=== PATIENT | male | born 2000 | race Hispanic/Latino ===

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

== ENCOUNTER 2019-10-16 18:23 | Emergency (ER) | payer BC, OTHER, SELFPAY ==
--- OUTSIDE RECORDS SUMMARY | 2019-10-16 18:25 | XMS REPORT ---
:[address] [facility] t Address [address] [place] [address] Dr. Frey [address] [place] [id number] Care Team Providers Name Role Phone Unavailable Unavailable Unavailable Problems This patient has no known problems. Allergies, Adverse Reactions, Alerts This patient has no known allergies or adverse reactions. Medications This patient has no known medications.
[2019-10-16] MEDS ORDERED: DIPHENHYDRAMINE 25 MG TAB/CAP ONE (19:07)
[2019-10-16] MEDS ORDERED: dexAMETHasone 4 MG TAB ONE (19:08)
--- NOTE | 2019-10-16 19:33 | ER ---
Nurse's Notes [facility] Name: Ashok Noble Age: 18 yrs Sex: Male : 2000 Arrival Date: 10/16/2019 Time: 18:27 Bed 18 Private MD: Diagnosis: Edema of bilateral orbit Presentation: 10/15 18:37 Chief complaint: Patient states: States he staring eating chicken that his girlfriend ll1 made him. He noticed it was raw, then started N/V. Then noticed eye area is swollen so he thought he might be having a allergic reaction. Coronavirus screen: Proceed with normal triage. Patient denies a cough. Patient denies shortness of breath or difficulty breathing. Patient denies measured and/or subjective temperature greater than 100.4F prior to today's visit. Patient denies travel on a cruise ship or to a country the [facility] currently lists as an affected area. Patient denies contact with known and/or suspected case of COVID-19. Ebola Screen: Patient denies travel to an Ebola-affected area in the 21 days before illness onset. Onset: The symptoms/episode began/occurred today. Anaphylaxis evaluation, eye area swelling. Initial Sepsis Screen: Does the patient meet any 2 criteria? No. Patient's initial sepsis screen is negative. Does the patient have a suspected source of infection? No. Patient's initial sepsis screen is negative. Risk Assessment: Do you want to hurt yourself or someone else? Patient reports no desire to harm self or others. Onset of symptoms was October 16, 2019. 18:37 Method Of Arrival: Ambulatory ll1 18:37 Acuity: MOISES 3 ll1 Historical: - Allergies: 18:41 No Known Allergies; ll1 - PMHx: 18:41 None; ll1 - PSHx: 18:41 None; ll1 - Social history:: Smoking status: Patient denies any tobacco usage or history of. Patient/guardian denies using alcohol, street drugs, tobacco products. Screenin:31 Abuse screen: Denies threats or abuse. Nutritional screening: No deficits noted. Tuberculosis screening: No symptoms or risk factors identified. Fall Risk None identified. Assessment: 18:50 General: Appears in no apparent distress. Behavior is calm, cooperative. Pain: Denies pain. Neuro: Level of Consciousness is awake, alert, Oriented to person, place, time, situation. Cardiovascular: Heart tones S1 S2 present. Respiratory: Airway is patent Respiratory effort is even, unlabored, Respiratory pattern is regular, symmetrical, Breath sounds are clear bilaterally. GI: No signs and/or symptoms were reported involving the gastrointestinal system. : No signs and/or symptoms were reported regarding the genitourinary system. EENT: Eyes swelling around eyes. Derm: No signs and/or symptoms reported regarding the dermatologic system. Musculoskeletal: No signs and/or symptoms reported regarding the musculoskeletal system. 19:47 Reassessment: discharge instructions given to Pt. No needs voiced. Pt voiced ah understanding. Vital Signs: 18:37 BP 126 / 89; Pulse 89; Resp 18; Temp 98.0; Pulse Ox 97% ; Pain 0/10; ll1 ED Course: 18:27 Patient arrived in ED. mr 18:33 Phil Carter PA is PHCP. jr8 18:33 Dg Perez MD is Attending Physician. [facility] 18:40 Triage completed. [facility] 18:41 Arm band placed on Patient placed in an exam room, on a stretcher. [facility] 18:58 Shelbi Urias, RN is Primary Nurse. 19:32 Patient has correct armband on for positive identification. Bed in low position. Call light in reach. 19:44 No provider procedures requiring assistance completed. Patient did not have IV access during this emergency room visit. Administered Medications: 19:05 Drug: Decadron 10 mg Route: PO; 19:43 Follow up: Response: No adverse reaction 19:06 Drug: Benadryl 25 mg Route: PO; 19:44 Follow up: Response: No adverse reaction Outcome: 19:32 Discharge ordered by . [facility] 19:46 Discharged to home ambulatory. 19:46 Condition: good 19:46 Discharge instructions given to patient, Instructed on discharge instructions, follow up and referral plans. Demonstrated understanding of instructions, follow-up care. 19:47 Patient left the ED. Signatures: Walter Noemi mr AkshataleksandarPhil PA PA 8 Shelbi Urias RN RN Mary Anne Perales RN RN [facility]
--- NOTE | 2019-10-16 19:34 | EDPHYS ---
Physician Documentation [facility] Name: Ashok Noble Age: 18 yrs Sex: Male : 2000 Arrival Date: 10/16/2019 Time: 18:27 Bed 18 Private MD: ED Physician Dg Perez HPI: 10/15 19:14 This 18 yrs old Male presents to ER via Ambulatory with complaints of Allergic jr8 Reaction. 19:14 The patient presents with localized swelling. Onset: The symptoms/episode jr8 began/occurred acutely, today. Associated signs and symptoms: The patient has no apparent associated signs or symptoms. Possible causes: The patient has no known obvious cause for the symptoms. Severity of symptoms: At their worst the symptoms were mild in the emergency department the symptoms are unchanged. The patient has not experienced similar symptoms in the past. The patient has not recently seen a physician. Patient stated that he was eating chicken and ate a piece that was undercooked. Stated that he went to vomit. Post vomiting had eye redness and swelling. Denies any other symptoms at this time . Historical: - Allergies: 18:41 No Known Allergies; ll1 - PMHx: 18:41 None; ll1 - PSHx: 18:41 None; ll1 - Social history:: Smoking status: Patient denies any tobacco usage or history of. Patient/guardian denies using alcohol, street drugs, tobacco products. ROS: 19:14 ENT: Negative for injury, pain, and discharge, Neck: Negative for injury, pain, and jr8 swelling, Cardiovascular: Negative for chest pain, palpitations, and edema, Respiratory: Negative for shortness of breath, cough, wheezing, and pleuritic chest pain, Abdomen/GI: Negative for abdominal pain, nausea, vomiting, diarrhea, and constipation, Back: Negative for injury and pain, MS/Extremity: Negative for injury and deformity, Skin: Negative for injury, rash, and discoloration, Neuro: Negative for headache, weakness, numbness, tingling, and seizure. 19:14 Eyes: Positive for redness, swelling. Exam: 19:14 Head/Face: Normocephalic, atraumatic. ENT: Nares patent. No nasal discharge, no jr8 septal abnormalities noted. Tympanic membranes are normal and external auditory canals are clear. Oropharynx with no redness, swelling, or masses, exudates, or evidence of obstruction, uvula midline. Mucous membranes moist. Neck: Trachea midline, no thyromegaly or masses palpated, and no cervical lymphadenopathy. Supple, full range of motion without nuchal rigidity, or vertebral point tenderness. No Meningismus. Cardiovascular: Regular rate and rhythm with a normal S1 and S2. No gallops, murmurs, or rubs. Normal PMI, no JVD. No pulse deficits. Respiratory: Lungs have equal breath sounds bilaterally, clear to auscultation and percussion. No rales, rhonchi or wheezes noted. No increased work of breathing, no retractions or nasal flaring. Abdomen/GI: Soft, non-tender, with normal bowel sounds. No distension or tympany. No guarding or rebound. No evidence of tenderness throughout. Back: No spinal tenderness. No costovertebral tenderness. Full range of motion. Skin: Warm, dry with normal turgor. Normal color with no rashes, no lesions, and no evidence of cellulitis. MS/ Extremity: Pulses equal, no cyanosis. Neurovascular intact. Full, normal range of motion. Neuro: Awake and alert, GCS 15, oriented to person, place, time, and situation. Cranial nerves II-XII grossly intact. Motor strength 5/5 in all extremities. Sensory grossly intact. Cerebellar exam normal. Normal gait. 19:14 Eyes: Periorbital structures: swelling, that is mild, on the right lower eyelid, on the left lower eyelid, Pupils: equal, round, and reactive to light and accomodation, Extraocular movements: intact throughout, Conjunctiva: injected, bilaterally, Corneas: are normal, Sclera: no appreciated abnormality, Anterior chamber: no acute changes, Lids and lashes: appear normal. Vital Signs: 18:37 BP 126 / 89; Pulse 89; Resp 18; Temp 98.0; Pulse Ox 97% ; Pain 0/10; ll1 MDM: 18:35 Patient medically screened. desiree 19:14 Data reviewed: vital signs, nurses notes, and as a result, I will discharge patient. jr8 Data interpreted: Pulse oximetry: on room air is 97 %. Interpretation: normal. Counseling: I had a detailed discussion with the patient and/or guardian regarding: the historical points, exam findings, and any diagnostic results supporting the discharge/admit diagnosis, the need for outpatient follow up, an opthalmologist, to return to the emergency department if symptoms worsen or persist or if there are any questions or concerns that arise at home. 19:31 ED course: Patient doing better. Will d/c home to f/u with PCP. If worse to come back . jr8 Administered Medications: 19:05 Drug: Decadron 10 mg Route: PO; 19:43 Follow up: Response: No adverse reaction 19:06 Drug: Benadryl 25 mg Route: PO; 19:44 Follow up: Response: No adverse reaction Disposition: 10/16 11:33 Co-signature as Attending Physician, Dg Perez MD I agree with the assessment and desiree plan of care. Disposition: 10/16/19 19:32 Discharged to Home. Impression: Edema of bilateral orbit. - Condition is Stable. - Discharge Instructions: Anaphylactic Reaction, Adult. - Medication Reconciliation Form, Thank You Letter, Antibiotic Education, Prescription Opioid Use form. - Follow up: Private Physician; When: As needed; Reason: Recheck today's complaints, Continuance of care, Re-evaluation by your physician. - Problem is new. - Symptoms have improved. Signatures: Dg Perez MD MD cha Roszak, Josh, PA PA jr8 Shelbi Urias RN RN Mary Anne Perales RN RN ll1 Corrections: (The following items were deleted from the chart) 10/15 19:47 19:32 10/16/2019 19:32 Discharged to Home. Impression: Edema of bilateral orbit. ah Condition is Stable. Forms are Medication Reconciliation Form, Thank You Letter, Antibiotic Education, Prescription Opioid Use. Follow up: Private Physician; When: As needed; Reason: Recheck today's complaints, Continuance of care, Re-evaluation by your physician. Problem is new. Symptoms have improved. jr8
[2019-10-16 20:00] VITALS: BP 126/89; TEMP 98; O2SAT 97
== END 2019-10-16 19:47 | disposition home or self-care (01) ==
LOC: ER 18:23
DX: H05.223 Edema of bilateral orbit (principal)
CPT/HCPCS: 99283; J8540

== ENCOUNTER 2019-12-22 10:17 | Emergency (ER) | payer SELFPAY ==
[2019-12-22] MEDS ORDERED: IBUPROFEN 400 MG TAB ONE (10:52)
--- NOTE | 2019-12-22 11:20 | RAD REPORT ---
EXAM DESCRIPTION: RAD - Lumbar Spine 3 Views - 12/22/2019 11:14 am CLINICAL HISTORY: Pain;Lower back pain Radiculopathy COMPARISON: No comparisons FINDINGS: Vertebral body heights appear maintained. No compression fracture noted. Disc spaces are m aintained. No spondylolysis or spondylolisthesis. IMPRESSION: Negative study.
--- NOTE | 2019-12-22 11:20 | ER ---
Nurse's Notes [facility] Name: Ashok Noble Age: 19 yrs Sex: Male : 2000 Arrival Date: 12/22/2019 Time: 10:19 Bed 18 Private MD: Diagnosis: Low back pain Presentation: 12/21 10:38 Chief complaint: Patient states: NONTRAUMATIC SPONTANEOUS LUMBAR PAIN. Coronavirus bp screen: Proceed with normal triage. Ebola Screen: No symptoms or risks identified at this time. Initial Sepsis Screen: Does the patient meet any 2 criteria? No. Patient's initial sepsis screen is negative. Does the patient have a suspected source of infection? No. Patient's initial sepsis screen is negative. Risk Assessment: Do you want to hurt yourself or someone else? Patient reports no desire to harm self or others. Onset of symptoms is unknown. 10:38 Method Of Arrival: Ambulatory bp 10:38 Acuity: MOISES 5 bp Triage Assessment: 10:39 General: Appears in no apparent distress. uncomfortable, Behavior is calm, cooperative, bp appropriate for age. Pain: Complains of pain in lumbar area. EENT: No deficits noted. Neuro: No deficits noted. Cardiovascular: No deficits noted. Respiratory: No deficits noted. GI: No signs and/or symptoms were reported involving the gastrointestinal system. : No signs and/or symptoms were reported regarding the genitourinary system. Derm: No deficits noted. Musculoskeletal: Circulation, motion, and sensation intact. Range of motion: intact in all extremities. Historical: - Allergies: 10:39 No Known Allergies; bp - Home Meds: 10:39 None [Active]; bp - PMHx: 10:39 None; bp - PSHx: 10:39 None; bp - Immunization history:: Adult Immunizations up to date. - Social history:: Smoking status: Patient denies any tobacco usage or history of. - Family history:: not pertinent. Screenin:40 Abuse screen: Denies threats or abuse. Denies injuries from another. Nutritional bp screening: No deficits noted. Tuberculosis screening: No symptoms or risk factors identified. Fall Risk None identified. Assessment: 10:40 General: SEE TRIAGE NOTE. Neuro: Level of Consciousness is awake, alert, obeys bp commands, Oriented to person, place, time, situation, Appropriate for age Moves all extremities. Full function Gait is steady. 12:14 Reassessment: PT D/C HOME AMBULATORY, DX WITH LUMBAR PAIN. dm5 Vital Signs: 10:38 BP 114 / 70; Pulse 71; Resp 16; Temp 97.7; Pulse Ox 100% ; Weight 80.74 kg; Height 5 bp ft. 8 in. (172.72 cm); 12:16 BP 121 / 65; Pulse 78; Resp 17; Temp 98; Pulse Ox 100% ; dm5 10:38 Body Mass Index 27.06 (80.74 kg, 172.72 cm) bp ED Course: 10:19 Patient arrived in ED. as 10:22 Dg Perez MD is Attending Physician. desiree 10:33 Warner Galeas, RN is Primary Nurse. bp 10:39 Triage completed. bp 10:39 Arm band placed on. bp 10:40 Patient has correct armband on for positive identification. Bed in low position. Call bp light in reach. Side rails up X2. 11:08 Lumbar Spine (3 Views) XRAY In Process Unspecified. EDMS 12:15 No provider procedures requiring assistance completed. Patient did not have IV access dm5 during this emergency room visit. Administered Medications: 10:44 Drug: Motrin 600 mg Route: PO; bp 12:15 Follow up: Response: Pain is decreased dm5 Outcome: 11:19 Discharge ordered by . desiree 12:08 Patient left the ED. dm5 12:15 Discharged to home ambulatory. dm5 12:15 Condition: stable 12:15 Discharge instructions given to patient, Instructed on discharge instructions, follow up and referral plans. medication usage, Demonstrated understanding of instructions, follow-up care, medications, Prescriptions given X 2. Signatures: Dispatcher [employer] EDMA Nancy Cottrell, RN RN dm5 Dg Perez MD MD cha Martinez, Amelia as Peltier, Brian, RN RN bp
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
--- OUTSIDE RECORDS SUMMARY | 2019-12-22 11:50 | XMS REPORT | Continuity of Care Document ---
:2000 Author Organization [facility] Address [address] [place] [address] Dr. Frey [address] [place] [id number] Care Team Providers Name Role Phone Unavailable Unavailable Unavailable Problems This patient has no known problems. Allergies, Adverse Reactions, Alerts This patient has no known allergies or adverse reactions. Medications This patient has no known medications. Procedures This patient has no known procedures. Results This patient has no known results.
[2019-12-22 12:16] VITALS: BP 114/70; TEMP 97.7; O2SAT 100
== END 2019-12-22 12:08 | disposition home or self-care (01) ==
LOC: ER 10:17
DX: M54.5 Low back pain (principal)
CPT/HCPCS: 72100; 99283

== ENCOUNTER 2021-12-22 09:02 | Emergency (ER) | payer SELFPAY ==
[2021-12-22] MEDS ORDERED: KETOROLAC 30 MG/ML INJ ONE (09:41)
--- NOTE | 2021-12-22 10:16 | RAD REPORT ---
EXAM DESCRIPTION: RAD - Shoulder Left 2 View - 12/22/2021 9:48 am CLINICAL HISTORY: shoulder pain COMPARISON: No comparisons TECHNIQUE: Internal and external rotation views of the left shoulder were obtained. FINDINGS: There is no fracture or dislocation. Note AC joint displacement. Width of the AC joint is not outside of normal range. Acromial humeral joint space is normal with no soft tissue calcification s seen. No acute or suspicious findings. IMPRESSION: Negative two-view left shoulder examination for acute findings. Concern for shoulder joint internal derangement can be addressed with outpatient MRI imaging as juarez conner.
--- NOTE | 2021-12-22 11:28 | EDPHYS ---
Physician Documentation [facility] Name: Ashok Noble Age: 21 yrs Sex: Male : 2000 Arrival Date: 12/22/2021 Time: 09:04 Bed 11 Private MD: ED Physician Prasad Saini HPI: 12/22 09:32 This 21 yrs old Male presents to ER via Ambulatory with complaints of Arm Pain.jmm 09:32 The patient or guardian complains of pain. Onset: The symptoms/episode began/occurred jmm gradually, 3 month(s) ago. Treatment prior to arrival includes: no previous treatment. Modifying factors: The symptoms are alleviated by nothing. the symptoms are aggravated by movement. This is a 21 year old male with no chronic medical conditions that presents to the ED with complaints of left shoulder pain which initially developed around 3 to 4 months. Pain is reproduced with movement of the arm and rotation of his neck. . Historical: - Allergies: 09:31 No Known Allergies; ss - Home Meds: 09:31 None [Active]; ss - PMHx: 09:31 None; ss - PSHx: 09:31 None; ss - Immunization history:: Client reports having NOT received the Covid vaccine. - Social history:: Smoking status: Reported history of juuling and/or vaping. ROS: 09:32 Constitutional: Negative for fever, chills, and weight loss, Cardiovascular: Negative jmm for chest pain, palpitations, and edema, Respiratory: Negative for shortness of breath, cough, wheezing, and pleuritic chest pain. 09:32 MS/extremity: Positive for pain. 09:32 All other systems are negative. Exam: 09:32 Constitutional: This is a well developed, well nourished patient who is awake, alert, jmm and in no acute distress. Head/Face: atraumatic. Eyes: EOMI, no conjunctival erythema appreciated ENT: Moist Mucus Membranes Neck: Trachea midline, Supple Chest/axilla: Normal chest wall appearance and motion. Cardiovascular: Regular rate and rhythm. No edema appreciated Respiratory: Normal respirations, no respiratory distress appreciated Abdomen/GI: Non distended Back: Normal ROM Skin: General appearance color normal 09:32 Musculoskeletal/extremity: left posterior shoulder pain reproduced on abduction, full data engineer strength, compartments are soft, NVI. 09:32 Skin: Appearance: Color: normal in color. 09:32 Neuro: Orientation: is normal, Mentation: is normal, Memory: is normal. 09:32 Psych: Behavior/mood is pleasant, cooperative. Vital Signs: 09:30 BP 145 / 88; Pulse 69; Resp 14; Temp 97.6(TE); Pulse Ox 100% on R/A; Weight 81.65 kg; ss Height 5 ft. 8 in. (172.72 cm); Pain 9/10; 09:30 Body Mass Index 27.37 (81.65 kg, 172.72 cm) ss MDM: 09:32 Patient medically screened. [facility] 11:26 Data reviewed: vital signs, nurses notes. Counseling: I had a detailed discussion with josr the patient and/or guardian regarding: the historical points, exam findings, and any diagnostic results supporting the discharge/admit diagnosis, radiology results, the need for outpatient follow up, to return to the emergency department if symptoms worsen or persist or if there are any questions or concerns that arise at home. ED course: Xray is negative. Patient advised to follow up with ortho for further evaluation. patient understood and agrees with the plan of care. . 12/22 09:32 Order name: Shoulder Left (2 View) XRAY; Complete Time: 10:39 [facility] Administered Medications: 09:36 Drug: Ketorolac 30 mg Route: IM; Site: right deltoid; ss 11:52 Follow up: Response: No adverse reaction; Pain is decreased ss Disposition: 19:58 Co-signature as Attending Physician, Prasad Saini DO I was immediately available on-site ms3 in the Emergency Department for consultation in the care of the patient.. Disposition Summary: 12/22/21 11:28 Discharge Ordered Location: Home [facility] Condition: Stable [facility] Diagnosis - Pain in left shoulder [facility] Followup: [facility] - With: Kirill Burroughs MD - When: 2 - 3 days - Reason: Recheck today's complaints, Continuance of care, Re-evaluation by your physician Discharge Instructions: - Discharge Summary Sheet [facility] - Shoulder Pain [facility] Forms: - Medication Reconciliation Form [facility] - Thank You Letter [facility] - Antibiotic Education [facility] - Prescription Opioid Use [facility] Prescriptions: - Medrol (Scooby) 4 mg Oral Tablets, Dose Pack - take 1 tablet by ORAL route as directed - follow package instructions; 1 jmm packet; Refills: 0, Product Selection Permitted - orphenadrine citrate 100 mg Oral Tablet Sustained Release - take 1 tablet by ORAL route 2 times per day As needed; 20 tablet; Refills: 0, josr Product Selection Permitted Signatures: Dispatcher [employer] Esa Pope PA PA jmm Smirch, Shelby, RN RN Prasad Luciano DO DO ms3
--- NOTE | 2021-12-22 11:28 | ER ---
Nurse's Notes [facility] Name: Ashok Noble Age: 21 yrs Sex: Male : 2000 Arrival Date: 12/22/2021 Time: 09:04 Bed 11 Private MD: Diagnosis: Pain in left shoulder Presentation: 12/22 09:30 Chief complaint: Patient states: L shoulder pain that has been ongoing for months. Pt ss reports that pain is worse with increased ROM/ activity. Coronavirus screen: Client denies travel out of the [place] in the last 14 days. Ebola Screen: Patient denies exposure to infectious person. Patient denies travel to an Ebola-affected area in the 21 days before illness onset. Initial Sepsis Screen: Does the patient meet any 2 criteria? No. Patient's initial sepsis screen is negative. Does the patient have a suspected source of infection? No. Patient's initial sepsis screen is negative. Risk Assessment: Do you want to hurt yourself or someone else? Patient reports no desire to harm self or others. Onset of symptoms is unknown. 09:30 Method Of Arrival: Ambulatory ss 09:30 Acuity: MOISES 4 ss Historical: - Allergies: 09:31 No Known Allergies; ss - Home Meds: 09:31 None [Active]; ss - PMHx: 09:31 None; ss - PSHx: 09:31 None; ss - Immunization history:: Client reports having NOT received the Covid vaccine. - Social history:: Smoking status: Reported history of juuling and/or vaping. Screenin:52 Abuse screen: Denies threats or abuse. Denies injuries from another. Nutritional ss screening: No deficits noted. Tuberculosis screening: Never had TB. Fall Risk None identified. Assessment: 11:52 Reassessment: Patient appears in no apparent distress at this time. Patient and/or ss family updated on plan of care and expected duration. Pain level reassessed. Patient is alert, oriented x 3, equal unlabored respirations, skin warm/dry/pink. Vital Signs: 09:30 BP 145 / 88; Pulse 69; Resp 14; Temp 97.6(TE); Pulse Ox 100% on R/A; Weight 81.65 kg; ss Height 5 ft. 8 in. (172.72 cm); Pain 9/10; 09:30 Body Mass Index 27.37 (81.65 kg, 172.72 cm) ED Course: 09:04 Patient arrived in ED. as 09:05 Esa Paiz PA is PHCP. [facility] 09:05 Prasad Saini DO is Attending Physician. [facility] 09:31 Triage completed. ss 09:31 Arm band placed on right wrist. ss 09:50 Shoulder Left (2 View) XRAY In Process Unspecified. EDMS 11:27 Kirill Burroughs MD is Referral Physician. [facility] 11:52 Sandy Reyez, REGGIE is Primary Nurse. ss 11:52 Patient has correct armband on for positive identification. Bed in low position. Call ss light in reach. 11:52 No provider procedures requiring assistance completed. Patient did not have IV access ss during this emergency room visit. Administered Medications: 09:36 Drug: Ketorolac 30 mg Route: IM; Site: right deltoid; 11:52 Follow up: Response: No adverse reaction; Pain is decreased ss Medication: 11:52 VIS not applicable for this client. Outcome: 11:28 Discharge ordered by . [facility] 11:52 Discharged to home ambulatory. 11:52 Condition: good 11:52 Discharge instructions given to patient, Instructed on discharge instructions, follow up and referral plans. Demonstrated understanding of instructions, follow-up care, medications, Prescriptions given X 2. 11:52 Patient left the ED. Signatures: Dispatcher [employer] EDMS Esa Paiz PA PA jmm Martinez, Amelia as Smirch, Shelby, REGGIE RN
[2021-12-22 12:55] VITALS: BP 145/88; TEMP 97.6; O2SAT 100
== END 2021-12-22 11:52 | disposition home or self-care (01) ==
LOC: ER 09:02
DX: M25.512 Pain in left shoulder (principal)